=== PATIENT | female | born 1990 | race Two or more races ===

== ENCOUNTER 2016-10-23 16:01 | Inpatient (IN) | payer SELFPAY ==
[~2016-10-23] VITALS: Ht 154.9 cm; Wt 56.4 kg
[2016-10-23] MEDS ORDERED: ALBUTEROL SULF 2.5 MG/0.5ML(0.5%) NEB SOLN NEB ONE (16:30)
[2016-10-23] MEDS ORDERED: IPRATROPIUM BROM 0.5 MG/2.5ML INH SOL NEB ONE (16:30)
[2016-10-23 16:40] LABS: Urine Bilirubin Negative (Negative); Urine Blood Negative /uL (Negative); Urine Color Yellow (Yellow); Urine Glucose Normal (Normal); Urine Mucus FEW (None Seen); Urine Nitrite Negative (Negative); Urine RBC 11 /hpf (0 - 4); Urine Squamous Epithelial Cell MANY /hpf (<5); Urine Urobilinogen Normal (Negative); Urine pH 6.5 (5.0-8.0)
[2016-10-23 16:41] LABS: Urine Ketone 1+ (Negative)
[2016-10-23] MEDS ORDERED: cefTRIAXone 1GM/50ML D5W 50 ML IV ONE (17:00)
[2016-10-23] MEDS ORDERED: methylPREDNISolone SOD SUCC 125 MG/2 ML VL IV ONE (17:00)
[2016-10-23 17:35] LABS: Basophils # (auto) 0.1 uL; Basophils % (auto) 0.7 % (0.0-2.0); DEFINITIVE VIEW TRANSMISSION; Eosinophils # (auto) 1.4 uL; Eosinophils % (auto) 10.5 % (0.0-7.0); Hematocrit 43.4 % (36.0-46.0); Hemoglobin 14.1 g/dL (12.2-16.2); Lymphocytes # (auto) 3.6 uL; Lymphocytes % (auto) 27.1 % (10.0-50.0); Mean Corpuscular Hemoglobin 28.5 pg (28.0-32.0); Mean Corpuscular Hgb Conc. 32.4 g/dL (32.0-36.0); Mean Platelet Volume 7.4 fL (7.4-10.4); Monocytes # (auto) 0.9 uL; Neutrophils # (auto) 7.2 uL; Neutrophils % (auto) 54.7 % (37.0-80.0); Platelet Count (auto) 461 10^3/uL (140-450); Red Cell Distribution Width 13.4 % (11.6-16.0); White Blood Cell 13.1 10^3/uL (4.4-10.8)
[2016-10-23 18:01] LABS: BUN/Creatinine Ratio 14.7; Potassium 3.6 mmol/L (3.5-5.1)
[2016-10-23 18:03] LABS: Bilirubin, Total 0.3 mg/dL (0.2-1.0); Lactic Acid 3.1 mmol/L (0.4-2.0); Total Protein 7.8 g/dL (6.4-8.2)
[2016-10-23 18:10] LABS: REFLEX LACTIC ACID YES OR NO YES
[2016-10-23 19:50] LABS: Lactic Acid 2.4 mmol/L (0.4-2.0)
[2016-10-23 20:26] LABS: REFLEX LACTIC ACID YES OR NO YES
[2016-10-23] MEDS ORDERED: ONDANSETRON HCL 4 MG/2 ML VIAL IV PRN (21:15)
[2016-10-23] MEDS ORDERED: ACETAMINOPHEN 325 MG TAB PO PRN (21:15)
[2016-10-23 21:23] LABS: Lactic Acid 2.3 mmol/L (0.4-2.0)
[2016-10-23 21:45] VITALS: BP 104/64
[2016-10-23 22:00] LABS: REFLEX LACTIC ACID YES OR NO YES
[2016-10-23] MEDS: methylPREDNISolone SOD SUCC 125 MG/2 ML VL IV SCH (22:28)
[2016-10-23] MEDS: FAMOTIDINE 20 MG TAB PO SCH (22:28)
[2016-10-23 23:20] LABS: Lactic Acid 4.1 mmol/L (0.4-2.0)
[2016-10-23 23:56] LABS: REFLEX LACTIC ACID YES OR NO YES
[2016-10-24] VITALS (8 sets, daily range): BP systolic 100–132; BP diastolic 63–76
[2016-10-24] MEDS: IPRATROPIUM BROM 0.5 MG/2.5ML INH SOL NEB PRN ×2 (00:15→10:00)
[2016-10-24] MEDS: ALBUTEROL SULF 2.5 MG/0.5ML(0.5%) NEB SOLN NEB PRN ×2 (00:15→10:00)
[2016-10-24] MEDS ORDERED: QUET100T38 PO (03:38)
[2016-10-24] MEDS ORDERED: LORA-653 PO (03:38)
[2016-10-24] MEDS ORDERED: MIRT45TA PO (03:38)
[2016-10-24 06:54] LABS: Basophils # (auto) 0 uL; Basophils % (auto) 0.1 % (0.0-2.0); Eosinophils # (auto) 0 uL; Hematocrit 38.8 % (36.0-46.0); Lymphocytes # (auto) 0.7 uL; Lymphocytes % (auto) 8.9 % (10.0-50.0); Mean Corpuscular Hemoglobin 28.9 pg (28.0-32.0); Mean Corpuscular Hgb Conc. 33.5 g/dL (32.0-36.0); Mean Corpuscular Volume 86.4 fL (80.0-100.0); Mean Platelet Volume 7.3 fL (7.4-10.4); Monocytes # (auto) 0.1 uL; Monocytes % (auto) 0.8 % (0.0-12.0); Neutrophils # (auto) 7.2 uL; Neutrophils % (auto) 90.2 % (37.0-80.0); Platelet Count (auto) 457 10^3/uL (140-450); Red Cell Distribution Width 13.4 % (11.6-16.0); White Blood Cell 7.9 10^3/uL (4.4-10.8)
[2016-10-24 07:12] LABS: Calcium 9.1 mg/dL (8.5-10.1); Potassium 4.2 mmol/L (3.5-5.1)
[2016-10-24 07:23] LABS: Bilirubin, Total 0.2 mg/dL (0.2-1.0); Total Protein 7.7 g/dL (6.4-8.2)
[2016-10-24] MEDS ORDERED: cefTRIAXone 1GM/50ML D5W 50 ML IV SCH (09:00)
[2016-10-24] MEDS: FAMOTIDINE 20 MG TAB PO SCH ×2 (09:39→21:09)
[2016-10-24] MEDS: methylPREDNISolone SOD SUCC 125 MG/2 ML VL IV SCH ×2 (09:39→18:27)
[2016-10-24] MEDS ORDERED: ENOXAPARIN SOD 40 MG/0.4 ML SYRINGE SC ONE (12:15)
[2016-10-24 13:08] LABS: INR 1.1 (0.9-1.15); Partial Thromboplastin Time 26.6 sec (22.64-33.71); Prothrombin Time 11.3 sec (9.37-12.3)
[2016-10-24] MEDS: DOXYCYCLINE HYC 100MG/250ML 250 ML IV SCH (13:54)
[2016-10-24] MEDS: IPRATROPIUM BROM 0.5 MG/2.5ML INH SOL NEB SCH ×3 (14:41→22:00)
[2016-10-24] MEDS: ALBUTEROL SULF 2.5 MG/0.5ML(0.5%) NEB SOLN NEB SCH ×3 (14:41→22:00)
[2016-10-24] MEDS: HYDROcodone-ACET 5/325MG TAB PO PRN (21:10)
[2016-10-24] MEDS ORDERED: TEMAZEPAM 15 MG CAP PO ONE (22:00)
[2016-10-25] MEDS: DOXYCYCLINE HYC 100MG/250ML 250 ML IV SCH (00:10)
[2016-10-25] MEDS: HYDROcodone-ACET 5/325MG TAB PO PRN ×2 (01:52→18:07)
[2016-10-25] MEDS: methylPREDNISolone SOD SUCC 125 MG/2 ML VL IV SCH ×2 (01:53→11:33)
[2016-10-25] MEDS: ALBUTEROL SULF 2.5 MG/0.5ML(0.5%) NEB SOLN NEB SCH ×5 (02:20→19:34)
[2016-10-25] MEDS: IPRATROPIUM BROM 0.5 MG/2.5ML INH SOL NEB SCH ×4 (02:20→14:38)
[2016-10-25 05:00] VITALS: BP 101/47
[2016-10-25 09:00] VITALS: BP 99/53
[2016-10-25] MEDS ORDERED: cefTRIAXone 1GM/50ML D5W 50 ML IV SCH (09:00)
[2016-10-25] MEDS: FAMOTIDINE 20 MG TAB PO SCH ×2 (11:32→21:21)
[2016-10-25] MEDS: ENOXAPARIN SOD 40 MG/0.4 ML SYRINGE SC SCH (11:32)
[2016-10-25 13:00] VITALS: BP 116/71
[2016-10-25] MEDS ORDERED: ACETYLCYSTEINE 10 %(100MG/ML) SOL 4ML NEB SCH (14:00)
[2016-10-25 17:10] VITALS: BP 114/58
[2016-10-25] MEDS: methylPREDNISolone SOD SUCC 40 MG/ML VL IV SCH (18:07)
[2016-10-25] MEDS: BUDESONIDE (INHALATION) 0.5 MG/2 ML NEB NEB SCH (19:34)
[2016-10-25 20:00] VITALS: BP 110/67
[2016-10-25] MEDS: DOXYCYCLINE 100 MG TAB/CAP PO SCH (21:20)
[2016-10-25] MEDS: ALPRAZolam 0.5 MG TAB PO SCH ×2 (21:21→21:48)
[2016-10-25] MEDS: CIPROFLOXACIN HCL 500 MG TAB PO SCH (21:21)
[2016-10-25] MEDS: PROMETHAZINE-DM 5 ML ORAL SYRUP PO PRN (21:24)
[2016-10-25 22:00] VITALS: BP 110/67
[2016-10-26] MEDS: methylPREDNISolone SOD SUCC 40 MG/ML VL IV SCH ×2 (01:46→09:14)
[2016-10-26 05:02] VITALS: BP 99/57
[2016-10-26] MEDS: ALPRAZolam 0.5 MG TAB PO SCH ×3 (06:00→23:12)
[2016-10-26 07:15] LABS: Lactic Acid 2.4 mmol/L (0.4-2.0)
[2016-10-26] MEDS: BUDESONIDE (INHALATION) 0.5 MG/2 ML NEB NEB SCH ×2 (07:23→18:40)
[2016-10-26] MEDS: ALBUTEROL SULF 2.5 MG/0.5ML(0.5%) NEB SOLN NEB SCH ×4 (07:23→18:40)
[2016-10-26] MEDS: ACETYLCYSTEINE 10 %(100MG/ML) SOL 4ML NEB SCH ×3 (07:23→23:27)
[2016-10-26 07:30] LABS: REFLEX LACTIC ACID YES OR NO YES
[2016-10-26 09:00] VITALS: BP 107/55
[2016-10-26] MEDS: FAMOTIDINE 20 MG TAB PO SCH ×2 (09:14→23:11)
[2016-10-26] MEDS: CIPROFLOXACIN HCL 500 MG TAB PO SCH ×2 (09:14→23:16)
[2016-10-26] MEDS: DOXYCYCLINE 100 MG TAB/CAP PO SCH ×2 (09:15→23:11)
[2016-10-26] MEDS: ENOXAPARIN SOD 40 MG/0.4 ML SYRINGE SC SCH (09:15)
[2016-10-26 10:39] LABS: Lactic Acid 3.9 mmol/L (0.4-2.0)
[2016-10-26 11:07] LABS: REFLEX LACTIC ACID YES OR NO YES
[2016-10-26 12:56] LABS: Lactic Acid 3.9 mmol/L (0.4-2.0)
[2016-10-26 13:00] VITALS: BP 107/62
[2016-10-26 13:20] LABS: REFLEX LACTIC ACID YES OR NO YES
[2016-10-26 17:34] VITALS: BP 98/66
[2016-10-26 17:50] LABS: Lactic Acid 3.1 mmol/L (0.4-2.0)
[2016-10-26] MEDS: methylPREDNISolone SOD SUCC 125 MG/2 ML VL IV SCH (18:06)
[2016-10-26 19:04] LABS: REFLEX LACTIC ACID YES OR NO YES
[2016-10-26 20:00] VITALS: BP 136/61
[2016-10-26 20:36] LABS: Lactic Acid 4.2 mmol/L (0.4-2.0)
[2016-10-26 21:30] LABS: REFLEX LACTIC ACID YES OR NO YES
[2016-10-26 23:07] VITALS: BP 118/70
[2016-10-26] MEDS: ALBUTEROL SULF 2.5 MG/0.5ML(0.5%) NEB SOLN NEB PRN (23:27)
[2016-10-27] VITALS (7 sets, daily range): BP systolic 97–116; BP diastolic 38–69
[2016-10-27] MEDS: methylPREDNISolone SOD SUCC 125 MG/2 ML VL IV SCH ×5 (00:15→23:44)
[2016-10-27] MEDS: PROMETHAZINE-DM 5 ML ORAL SYRUP PO PRN ×2 (00:53→12:10)
[2016-10-27 03:23] LABS: Lactic Acid 3.4 mmol/L (0.4-2.0)
[2016-10-27 04:00] LABS: REFLEX LACTIC ACID YES OR NO YES
[2016-10-27] MEDS: ALPRAZolam 0.5 MG TAB PO SCH ×3 (05:39→22:14)
[2016-10-27] MEDS: ACETYLCYSTEINE 10 %(100MG/ML) SOL 4ML NEB SCH ×3 (06:30→22:50)
[2016-10-27] MEDS: ALBUTEROL SULF 2.5 MG/0.5ML(0.5%) NEB SOLN NEB SCH ×4 (06:30→18:47)
[2016-10-27 08:17] LABS: Lactic Acid 3.1 mmol/L (0.4-2.0)
[2016-10-27 08:19] LABS: REFLEX LACTIC ACID YES OR NO NO
[2016-10-27] MEDS: FAMOTIDINE 20 MG TAB PO SCH ×2 (09:42→22:13)
[2016-10-27] MEDS: CIPROFLOXACIN HCL 500 MG TAB PO SCH ×2 (09:42→22:13)
[2016-10-27] MEDS: ENOXAPARIN SOD 40 MG/0.4 ML SYRINGE SC SCH (09:42)
[2016-10-27] MEDS: DOXYCYCLINE 100 MG TAB/CAP PO SCH ×2 (09:42→22:13)
[2016-10-27] MEDS: BUDESONIDE (INHALATION) 0.5 MG/2 ML NEB NEB SCH ×2 (09:48→18:47)
[2016-10-28] VITALS (8 sets, daily range): BP systolic 98–124; BP diastolic 55–72
[2016-10-28] MEDS: ALBUTEROL SULF 2.5 MG/0.5ML(0.5%) NEB SOLN NEB PRN (00:57)
[2016-10-28] MEDS: methylPREDNISolone SOD SUCC 125 MG/2 ML VL IV SCH ×3 (05:32→17:40)
[2016-10-28] MEDS: ALPRAZolam 0.5 MG TAB PO SCH ×3 (05:33→21:55)
[2016-10-28] MEDS: ALBUTEROL SULF 2.5 MG/0.5ML(0.5%) NEB SOLN NEB SCH ×4 (06:27→19:28)
[2016-10-28] MEDS: BUDESONIDE (INHALATION) 0.5 MG/2 ML NEB NEB SCH ×2 (06:28→19:28)
[2016-10-28] MEDS: ACETYLCYSTEINE 10 %(100MG/ML) SOL 4ML NEB SCH (06:28)
[2016-10-28] MEDS: HYDROcodone-ACET 5/325MG TAB PO PRN ×2 (07:32→22:49)
[2016-10-28] MEDS: DOXYCYCLINE 100 MG TAB/CAP PO SCH ×2 (09:43→21:55)
[2016-10-28] MEDS: FAMOTIDINE 20 MG TAB PO SCH ×2 (09:43→21:55)
[2016-10-28] MEDS: PROMETHAZINE-DM 5 ML ORAL SYRUP PO PRN (09:44)
[2016-10-28] MEDS: ENOXAPARIN SOD 40 MG/0.4 ML SYRINGE SC SCH (09:44)
[2016-10-28] MEDS: CIPROFLOXACIN HCL 500 MG TAB PO SCH (11:09)
[2016-10-28] MEDS: MONTELUKAST SODIUM 10 MG TAB PO SCH (14:46)
[2016-10-28] MEDS ORDERED: BISACODYL 5 MG EC TAB PO ONE (16:45)
[2016-10-28] MEDS ORDERED: INFLUENZA QUAD 2016-2017 0.5 ML SYRG IM ONE (18:30)
[2016-10-29] VITALS (7 sets, daily range): BP systolic 100–112; BP diastolic 49–65
[2016-10-29] MEDS: methylPREDNISolone SOD SUCC 125 MG/2 ML VL IV SCH ×4 (02:21→17:48)
[2016-10-29] MEDS: ALPRAZolam 0.5 MG TAB PO SCH ×3 (06:11→22:13)
[2016-10-29] MEDS: BUDESONIDE (INHALATION) 0.5 MG/2 ML NEB NEB SCH ×2 (07:49→18:15)
[2016-10-29] MEDS: ALBUTEROL SULF 2.5 MG/0.5ML(0.5%) NEB SOLN NEB SCH ×4 (07:49→18:15)
[2016-10-29] MEDS: FAMOTIDINE 20 MG TAB PO SCH ×2 (09:55→22:13)
[2016-10-29] MEDS: ENOXAPARIN SOD 40 MG/0.4 ML SYRINGE SC SCH (09:55)
[2016-10-29] MEDS: DOXYCYCLINE 100 MG TAB/CAP PO SCH ×2 (09:55→22:13)
[2016-10-29] MEDS: MONTELUKAST SODIUM 10 MG TAB PO SCH (09:55)
[2016-10-29] MEDS: PROMETHAZINE-DM 5 ML ORAL SYRUP PO PRN ×2 (09:56→19:06)
[2016-10-29] MEDS ORDERED: LORazepam 0.5 MG TAB PO PRN (18:45)
[2016-10-29] MEDS: HYDROcodone-ACET 5/325MG TAB PO PRN (22:19)
[2016-10-30] MEDS: methylPREDNISolone SOD SUCC 125 MG/2 ML VL IV SCH ×2 (00:32→05:59)
[2016-10-30 05:00] VITALS: BP 98/53
[2016-10-30] MEDS: ALPRAZolam 0.5 MG TAB PO SCH ×3 (05:58→22:03)
[2016-10-30] MEDS: ALBUTEROL SULF 2.5 MG/0.5ML(0.5%) NEB SOLN NEB SCH ×4 (06:20→18:55)
[2016-10-30 07:55] VITALS: BP 109/54
[2016-10-30] MEDS: DOXYCYCLINE 100 MG TAB/CAP PO SCH ×2 (09:30→22:03)
[2016-10-30] MEDS: MONTELUKAST SODIUM 10 MG TAB PO SCH (09:30)
[2016-10-30] MEDS: FAMOTIDINE 20 MG TAB PO SCH ×2 (09:30→22:00)
[2016-10-30] MEDS: ENOXAPARIN SOD 40 MG/0.4 ML SYRINGE SC SCH (09:31)
[2016-10-30] MEDS: BUDESONIDE (INHALATION) 0.5 MG/2 ML NEB NEB SCH ×2 (10:11→18:55)
[2016-10-30] MEDS: HYDROcodone-ACET 5/325MG TAB PO PRN ×2 (12:41→22:04)
[2016-10-30] MEDS: PROMETHAZINE-DM 5 ML ORAL SYRUP PO PRN (12:43)
[2016-10-30 13:12] VITALS: BP 106/82
[2016-10-30 17:00] VITALS: BP 99/63
[2016-10-30] MEDS ORDERED: methylPREDNISolone SOD SUCC 125 MG/2 ML VL IV SCH ×2 (18:00)
[2016-10-30 21:04] VITALS: BP 99/63
[2016-10-30 22:00] VITALS: BP 117/79
[2016-10-31 05:00] VITALS: BP 109/64
[2016-10-31] MEDS: ALPRAZolam 0.5 MG TAB PO SCH ×2 (06:10→13:51)
[2016-10-31] MEDS: ALBUTEROL SULF 2.5 MG/0.5ML(0.5%) NEB SOLN NEB SCH ×3 (06:19→14:16)
[2016-10-31 08:00] VITALS: BP 110/60
[2016-10-31 09:00] VITALS: BP 110/60
[2016-10-31] MEDS: MONTELUKAST SODIUM 10 MG TAB PO SCH (09:37)
[2016-10-31] MEDS: FAMOTIDINE 20 MG TAB PO SCH (09:37)
[2016-10-31] MEDS: DOXYCYCLINE 100 MG TAB/CAP PO SCH (09:37)
[2016-10-31] MEDS: ENOXAPARIN SOD 40 MG/0.4 ML SYRINGE SC SCH (09:37)
[2016-10-31] MEDS ORDERED: predniSONE 20 MG TAB PO SCH (10:00)
[2016-10-31] MEDS: BUDESONIDE (INHALATION) 0.5 MG/2 ML NEB NEB SCH (10:15)
[2016-10-31 13:00] VITALS: BP 105/72
[2016-10-31] MEDS ORDERED: INFLUENZA QUAD 2016-2017 0.5 ML SYRG IM ONE (14:00)
[2016-10-31 15:16] VITALS: BP 105/72
== END 2016-10-31 17:05 | disposition home or self-care (01) | DRG 189 ==
LOC: ER 16:05 → OVERFLOW 16:06 → CENTRAL 21:38
PROVIDERS: ADMIT Internal Medicine; ATTEND Internal Medicine Pulmonary Disease
DX: J96.00 Acute respiratory failure, unspecified whether with hypoxia or hypercapnia (principal); N39.0 Urinary tract infection, site not specified; E87.2 Acidosis; J45.901 Unspecified asthma with (acute) exacerbation; F31.9 Bipolar disorder, unspecified; D72.829 Elevated white blood cell count, unspecified; Z82.0 Family history of epilepsy and other diseases of the nervous system; Z83.6 Family history of other diseases of the respiratory system; Z23 Encounter for immunization
CPT/HCPCS: 36415; 71020; 80053; 81001; 81025; 83605; 85025; 85379; 85610; 85730; 87040; 87086; 87400; 94010; 94640; 94761; 96365; 96366; 96375; J0696; J3490

== ENCOUNTER 2017-12-31 19:33 | Emergency (ER) | payer MEDICAID, OTHER ==
[~2017-12-31] VITALS: Ht 152.4 cm; Wt 53.1 kg
[2017-12-31 20:46] LABS: Urine Amorphous Crystal FEW /hpf (None Seen); Urine Bacteria NONE SEEN /hpf (None Seen); Urine Blood Negative /uL (Negative); Urine Mucus FEW (None Seen); Urine Specific Gravity 1.027 (1.001-1.035); Urine WBC 5 /hpf (0 - 5)
[2017-12-31 21:14] LABS: Basophils # (auto) 0.1 uL; Basophils % (auto) 0.8 % (0.0-2.0); Eosinophils # (auto) 0.3 uL; Hematocrit 37.9 % (36.0-46.0); Hemoglobin 12.6 g/dL (12.2-16.2); Lymphocytes # (auto) 2.7 uL; Lymphocytes % (auto) 18.3 % (10.0-50.0); Mean Corpuscular Hemoglobin 28.5 pg (28.0-32.0); Mean Corpuscular Hgb Conc. 33.3 g/dL (32.0-36.0); Mean Corpuscular Volume 85.8 fL (80.0-100.0); Monocytes # (auto) 0.9 uL; Neutrophils # (auto) 10.6 uL; Neutrophils % (auto) 72.9 % (37.0-80.0); Platelet Count (auto) 430 10^3/uL (140-450); Red Blood Cells 4.41 10^6/uL (4.0-5.20); Red Cell Distribution Width 14.8 % (11.8-14.3); White Blood Cell 14.5 10^3/uL (4.4-10.8)
[2017-12-31 21:38] LABS: Albumin 3.9 g/dL (3.4-5.0); BUN/Creatinine Ratio 23.6; Potassium 4.3 mmol/L (3.5-5.1)
[2017-12-31 21:41] LABS: Bilirubin, Total 0.2 mg/dL (0.2-1.0); Total Protein 7.9 g/dL (6.4-8.2)
[2018-01-01 00:26] VITALS: BP 100/52
== END 2018-01-01 00:36 | disposition home or self-care (01) ==
LOC: ER 19:33
DX: O20.0 Threatened abortion (principal); Z3A.09 9 weeks gestation of pregnancy
CPT/HCPCS: 36415; 76801; 80053; 81001; 81025; 84702; 85025